=== PATIENT | female | born 1945 | race Caucasian/White ===

== ENCOUNTER → 2023-11-02 12:48 | Outpatient (CLI) | payer MEDICARE, OTHER, SELFPAY ==
--- NOTE | 2023-11-02 15:45 | DI.US.S_ITS ---
PROCEDURE: US PERIPH VENOUS LOW EXTREM LT INDICATIONS: SWELLING/PAIN AT MEDIAL ANTERIOR CALF. PREVIOUSLY RED/HOT TECHNIQUE: Real-time imaging, as well as color and pulse Doppler interrogation, were performed of the lower extremity deep veins from the inguinal ligament to the popliteal fossa, with documentation of the visualized calf veins. COMPARISON: None. FINDINGS: The common femoral, femoral, popliteal, and the visualized calf veins are normally compressible, and free of intraluminal thrombus. Color and pulse Doppler demonstrate normal phasic intraluminal flow. There is normal augmentation response to distal compression maneuver. Incidental note of superficial thrombophlebitis overlying the left garland. IMPRESSION: No findings of lower extremity deep venous thrombosis. Dictated by: Clara Anthoyn M.D. on 11/02/2023 at 14:21 Approved by: Clara Anthony M.D. on 11/02/2023 at 14:21
== END ==
PROVIDERS: Referring Provider Student in an Organized Health Care Education/Training Program; Visit Provider Student in an Organized Health Care Education/Training Program
DX: M79.662 Pain in left lower leg (principal); I80.02 Phlebitis and thrombophlebitis of superficial vessels of left lower extremity; M79.89 Other specified soft tissue disorders
CPT/HCPCS: 93971

== ENCOUNTER → 2023-11-28 09:25 | Outpatient (CLI) | payer MEDICARE, OTHER, SELFPAY ==
[2023-11-28 10:23] LABS: Influenza A - CEPHEID Flu A NEGATIVE (NEGATIVE); Influenza B - CEPHEID Flu B NEGATIVE (NEGATIVE); Respiratory Syncytial Virus Negative (Negative)
[2023-11-28 12:00] LABS: COVID-19 CEPHEID 4-PLEX PCR Negative (Negative)
== END ==
PROVIDERS: Referring Provider Physician Assistant; Visit Provider Physician Assistant
DX: R05.1 Acute cough (principal)
CPT/HCPCS: 0241U

== ENCOUNTER 2024-09-15 14:49 | Emergency (ER) | payer MEDICARE, OTHER, SELFPAY ==
[2024-09-15] VITALS (11 sets, daily range): BP systolic 137–168; BP diastolic 70–80; PULSE 60–67; RESP 13–36; TEMP 36.4; O2SAT 94–100; BMI 23.1
--- NOTE | 2024-09-15 15:19 | EKG_ITS ---
[address] [address] [address] [address] Test Date: 2024-09-15 Pat Name: Zoey Gonzalez Department: Room: Gender: Female Academic Advisement Director: ZHENG : 1945 Requested By: Order Number: [id number] Reading MD: Christopher Moser MD Measurements Intervals [place] Rate: 64 P: 48 VA: 166 QRS: 26 QRSD: 84 T: 25 QT: 416 QTc: 429 Interpretive Statements Normal sinus rhythm Electronically Signed On 09-15-2024 16:04:26 PDT by Christopher Moser MD
--- NOTE | 2024-09-15 15:22 | DI.RAD.S_ITS ---
PROCEDURE: XR CHEST 1V INDICATIONS: Chest Pain TECHNIQUE: One view of the chest was acquired. COMPARISON: None. FINDINGS: Surgical changes and devices: None. Lungs and pleura: Lungs are clear. No pleural effusions or pneumothorax. Mediastinum: Mediastinal contours appear normal. Heart size is normal. Bones and chest wall: No suspicious bony lesions. Overlying soft tissues appear unremarkable. IMPRESSION: No acute cardiopulmonary abnormality is seen. Dictated by: Festus Skelton M.D. on 09/15/2024 at 15:51 Approved by: Festus Skelton M.D. on 09/15/2024 at 15:51
--- NOTE | 2024-09-15 15:24 | ED_ITS ---
HPI - Neuro Symptoms/Deficit General Chief Complaint: Neuro Symptoms/Deficit Stated Complaint: lightheaded, vision loss in both eyes x4 days Time Seen by Provider: 09/15/24 15:20 History of Present Illness HPI Narrative: 79-year-old female history of hypertension, dyslipidemia, drove in from [place] on Sunday was going up a flight of stairs over 10 steps when she got to the top of the staircase both eyes started seeing complete white and this has not resolved completely since. She states when she gets more active and she does exercise regularly she sees the white coming back again in both eyes worse on the left eye. She does have a history of macular degeneration and recently had an annual physical exam for which she was just started on high blood pressure and cholesterol medicine. Patient denies headache dizziness chest pain shortness of breath unsteady gait trauma to the area or any history of any strokes. Other than what is stated 14 point review of system is negative. On Anticoagulants: No Related Data Home Medications ?Medication ?Instructions ?Recorded ?Confirmed levothyroxine 50 mcg tablet 50 mcg PO DAILY 11/01/23 0 11/01/23 alendronate 70 mg tablet 70 mg PO 11/28/23 11/28/23 Previous Rx's ?Medication ?Instructions ?Recorded benzonatate 200 mg capsule 200 mg PO TID PRN cough #30 caps 11/28/23 guaifenesin 1,200 mg tablet, 1,200 mg PO Q12H #30 tabs 11/28/23 extended release 12 hr Allergies Allergy/AdvReac Type Severity Reaction Status Date / Time No Known Drug Allergies Allergy Verified 11/28/23 09:21 Review of Systems Review of Systems ROS Unobtainable: All systems reviewed & are unremarkable except as noted in HPI and below Hematologic/Lymphatic On Anticoagulants: No Patient History Smoking Status: Never smoker Alcohol type: wine Exam Narrative Exam Narrative: My note Initial Vital Signs Initial Vital Signs: Vital Signs Temperature 97.6 F 09/15/24 15:01 Pulse Rate 66 09/15/24 15:01 Respiratory Rate 16 09/15/24 15:01 Blood Pressure 168/70 H 09/15/24 15:01 Pulse Oximetry 100 09/15/24 15:01 Oxygen Delivery Method Room Air 09/15/24 15:01 GENERAL: [79] year old patient appears stated age. Well-developed patient, in mild distress. HEAD: Atraumatic. Normocephalic. EYES: Pupils equal round and reactive. Extraocular motions intact. No scleral icterus. No injection or drainage. ENT: Nose without bleeding, purulent drainage. Throat without erythema, tonsillar hypertrophy or exudate. Airway patent. NECK: Trachea midline. Non tender CARDIOVASCULAR: Regular rate and rhythm without murmurs, gallops, or rubs. RESPIRATORY: Clear to auscultation. Breath sounds equal bilaterally. No wheezes, rales, or rhonchi. GASTROINTESTINAL: Abdomen soft, non-tender, nondistended. EXTREMITIES: No edema or joint tenderness. BACK: Nontender without deformity or crepitance. No flank tenderness. NEURO: AOx3. GCS 15 nonfocal neuro exam SKIN: No rash or erythema of visible areas Course Orders Ordered: ED Orders 09/15/24 15:22 XR chest 1V Stat Complete Blood Count AUTO DIFF Stat Comprehensive Metabolic Panel Stat Lipase Stat Magnesium Stat NT-proBNP (BNP-Adult 18+) Stat PTT Partial Thromboplastin Stevie Stat Prothrombin Time INR Stat Troponin & CK Cardiac Panel Stat EKG-12 Lead Stat 09/15/24 15:23 CT angio head and neck Stat CT head/brain wo con Stat Discontinued Medications Aspirin (Aspirin 81 Mg Chew Tab) 324 mg PO NOW ONE Stop: 09/15/24 15:22 Vital Signs Vital signs: Vital Signs - 8 hr 09/15/24 15:01 Temperature 97.6 F Pulse Rate 66 Respiratory Rate 16 Blood Pressure 168/70 H Pulse Oximetry 100 Oxygen Delivery Method Room Air MDM - Neuro Symptoms/Deficit Imaging Data CT scan - head: Radiologist's Impression: [place] [address] CT Scan Report Signed Patient: Zoey Gonzalez MR#: [id number] : 1945 Acct:[id number] Age/Sex: 79 / F Date of Service: 09/15/24 Loc: ED Accession Number: [id number] Procedure: CT head/brain wo con Ordering Provider: Christopher Niño D.O. PROCEDURE: CT HEAD/BRAIN WO CON INDICATIONS: vision changes/ headache dizziness TECHNIQUE: Noncontrast 4.5 mm thick angled axial sections acquired from the foramen magnum to the vertex, with coronal and sagittal reformats. For radiation dose reduction, the following was used: automated exposure control, adjustment of mA and/or kV according to patient size. COMPARISON: None. FINDINGS: Image quality: Diagnostic. CSF spaces: Basal cisterns are patent. No extra-axial fluid collections. The ventricles are symmetric in size and shape. Brain: No acute intracranial hemorrhage or mass effect. There is cerebral volume loss, with resultant ventricular and sulcal prominence. There are periventricular and deep white matter chronic small vessel ischemic changes. There is intracranial internal carotid artery atherosclerosis. Skull and face: Calvarium and visualized facial bones appear intact, without suspicious lesions. Sinuses: Visualized sinuses and mastoids are clear. IMPRESSION: No acute intracranial pathology. Chest x-ray: Radiologist's Impression: [place] [address] XRay Report Signed Patient: Zoey Gonzalez MR#: [id number] : 1945 Acct:[id number] Age/Sex: 79 / F Date of Service: 09/15/24 Loc: ED Accession Number: [id number] Procedur: XR chest 1V Ordering Provider: Christopher Niño D.O. PROCEDURE: XR CHEST 1V INDICATIONS: Chest Pain TECHNIQUE: One view of the chest was acquired. COMPARISON: None. FINDINGS: Surgical changes and devices: None. Lungs and pleura: Lungs are clear. No pleural effusions or pneumothorax. Mediastinum: Mediastinal contours appear normal. Heart size is normal. Bones and chest wall: No suspicious bony lesions. Overlying soft tissues appear unremarkable. IMPRESSION: No acute cardiopulmonary abnormality is seen. Extremity x-ray #1: Radiologist's Impression: [place] [address] CT Scan Report Signed Patient: Zoey Gonzalez MR#: [id number] : 1945 Acct:[id number] Age/Sex: 79 / F Date of Service: 09/15/24 Loc: ED Accession Number: [id number] Procedure: CT angio head and neck Ordering Provider: Christopher Niño D.O. PROCEDURE: CT ANGIO HEAD AND NECK INDICATIONS: light headed vision loss both eyes 4 days TECHNIQUE: After the administration of intravenous contrast, 1 mm thick sections acquired from the aortic arch through the [place]. 3-dimensional xxebmoy-xwitswvco-kylmtcaafe (MIP) and/or volume rendering reformats were acquired of the central intracranial vasculature and neck separately. For radiation dose reduction, the following was used: automated exposure control, adjustment of mA and/or kV according to patient size. COMPARISON: None. FINDINGS: Image quality: Diagnostic. Cerebral CT Angiogram: Internal carotid arteries: No acute findings. Intracranial ICA are patent with no significant stenosis. No occlusion. No aneurysm. Anterior cerebral arteries: Unremarkable. No significant stenosis. No occlusion. No aneurysm. Middle cerebral arteries: Unremarkable. No significant stenosis. No occlusion. No aneurysm. Posterior cerebral arteries: Unremarkable. No significant stenosis. No occlusion. No aneurysm. Basilar artery: Unremarkable. No significant stenosis. No occlusion. No aneurysm. Vertebral arteries: Unremarkable as visualized. Dural venous sinuses: Unremarkable given phase of enhancement. Other: Arterial phase appearance of the brain parenchyma is unremarkable. Neck CT Angiogram: Internal carotid arteries: Mild atherosclerotic calcifications at the carotid bifurcations without hemodynamically significant stenosis. No significant stenosis. No dissection or occlusion. Common carotid arteries: Mild less than 50% narrowing of the left common carotid artery at the level of the thyroid cartilage. No significant stenosis. No dissection or occlusion. External carotid arteries: Unremarkable. No occlusion. Vertebral arteries: Unremarkable. No significant stenosis. No dissection or occlusion. Aortic Arch and Mediastinum: Partially visualized aortic arch unremarkable without evidence of aneurysm. Origins of the great vessels unremarkable. Other: Arterial phase soft tissues of the neck and chest are unremarkable. Degenerative changes are seen in the included spine. IMPRESSION: No significant intracranial arterial abnormality is seen. No significant abnormality is seen within the arteries of the neck. Any quantitative measurements of stenosis were performed using NASCET criteria. ECG Data Interpretation: NSR HR 64 IN 166 QRS [address]-t wave change NO previous ekg to compare MDM Narrative Medical decision making narrative: Vital signs nurse triage note medication list previous ER visits in all imaging studies reviewed. CT head CTA angio neck and head and chest x-ray all showed no acute process. All lab work was essentially normal including troponin BNP. Visual acuity reviewed. L 20/40 R 20/30 both 20/30. Sodium 134, glucose 101 troponin less than 0.012. Differential diagnosis includes retinal detachment, vitreous hemorrhage, macular degeneration, acute closure, central retinal artery and venous occlusion. We will have patient follow up with Ophthalmology tomorrow and to call office for appointment. Discharge Plan Departure Patient Disposition: Home Clinical Impression: Visual disturbance Instructions: DI for Visual Field Disturbances Activity Restrictions/Additional Instructions: Return with new or worsening symptoms. Follow up with Ophthalmology referral. Prescriptions: No Action levothyroxine 50 mcg tablet 50 mcg PO DAILY alendronate 70 mg tablet 70 mg PO guaifenesin 1,200 mg tablet extended release 12hr 1,200 mg PO Q12H Qty: 30 0RF benzonatate 200 mg capsule 200 mg PO TID PRN (Reason: cough) Qty: 30 0RF Referrals: Miscellaneous,DoctorMD [Primary Care Provider, Medical] Bo Sim MD [Physician, Ophthalmology] - As soon as possible Referral Note: Seeing white in both eyes Stand Alone Forms: Patient Portal/API
[2024-09-15 16:05] LABS: Add Manual Diff / Slide Review NO; Hematocrit 38.0 % (36-46); Hemoglobin 13.5 g/dL (12.0-16.0); Lymphocytes Absolute Auto 1300 /uL (1100-4500); Mean Corpuscular HGB Conc 35.5 % (30-36); Mean Corpuscular Hemoglobin 33.0 PG (26-34); Mean Corpuscular Volume 92.9 fL (80-100); Platelet Count 176 X10^3/uL (150-400)
[2024-09-15 16:06] LABS: INR 0.9 (0.9-1.3); Prothrombin Time 10.7 SECONDS (9.4-12.5)
[2024-09-15 16:09] LABS: PTT Partial Thromboplastin Tim 26 SECONDS (25.1-36.5)
[2024-09-15 16:15] LABS: Alanine Aminotransferase 18 IU/L (<35); Albumin 4.4 g/dL (3.5-5.0); Albumin Globulin Ratio 1.3 (1.0-2.8); Alkaline Phosphatase 74 U/L (38-126); Blood Urea Nitrogen 16 mg/dL (7-17); Calcium 9.3 mg/dL (8.4-10.2); Carbon Dioxide 25 mmol/L (22-32); Chloride 102 mmol/L (98-107); Creatine Kinase 86 U/L (30-135); Estimated Glomerular Filt Rate > 60 mL/min (>60); Globulin 3.3 g/dL (1.7-4.1); Glucose 101 mg/dL (70-99); HEMOLYSIS 40 (0-50); Lipase 59 U/L (23-300); Magnesium 2.1 mg/dL (1.6-2.3); Potassium 4.1 mmol/L (3.4-5.1); Sodium 134 mmol/L (137-145); Total Protein 7.7 g/dL (6.3-8.2)
[2024-09-15 16:27] LABS: NT-proBNP (BNP-Adult 18+) 93 pg/mL (<450); Troponin I < 0.012 ng/mL (0.01-0.034)
== END 2024-09-15 18:56 | disposition home or self-care (01) ==
PROVIDERS: Emergency Provider Family Medicine
DX: H53.9 Unspecified visual disturbance (principal); R51.9 Headache, unspecified; R07.9 Chest pain, unspecified; R42 Dizziness and giddiness
CPT/HCPCS: 36415; 70450; 70496; 70498; 71045; 80053; 82550; 83690; 83735; 83880; 84484; 85025; 85610; 85730; 93005; 93010; 99284; Q9967